=== PATIENT | male | born 1960 | race Caucasian/White ===

== ENCOUNTER 2016-12-23 20:29 | Emergency (ER) | payer OTHER, MEDICARE ==
[~2016-12-23] VITALS: Ht 175.3 cm; Wt 111.1 kg
[~2016-12-23 20:29] MED LIST: NAPROSYN 500 M500 MG PO
[2016-12-23 20:35] VITALS: BP 158/93
--- NOTE | 2016-12-23 21:02 | ED ANKLE/FOOT INJURY COMPLAINT ---
History of Present Illness General Chief Complaint: Lower Extremity Injury Stated Complaint: PT FELL AND POSSIBLE BROKEN LEFT ANKLE Source: patient, old records Exam Limitations: no limitations Vital Signs & Intake/Output Vital Signs & Intake/Output Vital Signs Date Time Temp Pulse Resp B/P Pulse O2 O2 Flow FiO2 Ox Delivery Rate 12/23 2034 97.9 91 20 158/93 97 Room Air ED Intake and Output 12/24 0000 12/23 1200 Intake Total Output Total Balance Patient 245 lb Weight Allergies Coded Allergies: NO KNOWN ALLERGIES (12/23/16) Reconcile Medications Ibuprofen 800 MG TABLET 1 TAB PO Q8 PRN PAIN Naproxen (Naprosyn) 250 MG TABLET 1 TAB PO BID PRN KNEE PAIN Tramadol HCl 50 MG TABLET 1-2 TAB PO Q6 PRN pain Triage Note: TRIAGE: PT TO ER WITH S/O C/C L ANKLE PAIN S/P FALL. STATES HE TRIPPED ON A ROCK THAT WAS UNDER THE LEAVES THIS AFTERNOON. DID NOT TAKE ANY OTC PAIN MEDICATIONS, REFUSES OFFERED PAIN MEDICATIONS AT TRIAGE. Triage Nurses Notes Reviewed? yes HPI: Patient is a 56 year old male presents complaining of left ankle pain s/p inversion injury. Patient was walking at 1400 today when he stepped on a rock and inverted his left ankle. Pain is 10/10 worsens with movement and palpation. Patient smoked marijuana this evening with minimal improvement of his pain. Denies head injury, neck pain, back pain. (RICH SILVESTRE) Past History Travel History Traveled to [place] past 21 day No Medical History Any Pertinent Medical History? see below for history Neurological: NONE EENT: NONE Cardiovascular: NONE Respiratory: NONE Gastrointestinal: NONE Hepatic: NONE Renal: NONE Musculoskeletal: chronic back pain, disk herniation, HAND FX L LEG FX Psychiatric: NONE Endocrine: NONE Blood Disorders: NONE Cancer(s): NONE LATEX DIPPER/Reproductive: NONE Surgical History Surgical History: Tube placement in his ear when he was young Psychosocial History What is your primary language [place] Tobacco Use: Current Daily Use Daily Tobacco Use Amount/Type: => 5 Cigarettes daily ETOH Use: denies use Illicit Drug Use: marijuana Family History Hx Contributory? No (RICH SILVESTRE) Review of Systems Review of Systems Constitutional: Reports: no symptoms. Cardiovascular: Denies: chest pain. GI: Denies: abdominal pain. Musculoskeletal: Reports: see HPI. Denies: back pain, neck pain. Skin: Reports: no symptoms. Neurological/Psychological: Denies: headache, numbness, paresthesia. Hematologic/Endocrine: Denies: bruising, bleeding. Immunologic/Allergic: Denies: splenectomy. (RICH SILVESTRE) Physical Exam Physical Exam General Appearance: well developed/nourished, alert, awake, obese Head: atraumatic, normal appearance Eyes: Bilateral: normal appearance, PERRL, EOMI. Ears, Nose, Throat: normal pharynx, normal ENT inspection, hearing grossly normal Neck: normal inspection, supple, full range of motion Cardiovascular/Respiratory: no respiratory distress Back: normal range of motion Leg/Knee/Thigh Left: normal range of motion, normal inspection Ankle Left: TENDERNESS AND SWELLING LEFT LATERAL MALLEOLUS. jOINT STABLE, FULL RANGE OF MOTION. Foot Left: normal inspection, normal range of motion, NONTENDER Neuro/Vascular: normal motor function, normal sensation Tendon: normal tendon function (RICH SILVESTRE) Progress Differential Diagnosis: fracture, dislocation, sprain, contusion Plan of Care: Orders Procedure Date/time Status Durable Medical Equipment 12/23 2125 Active Durable Medical Equipment 12/23 2120 Active 2119: Results of x-ray discussed with patient. Left ankle and foot re-examined. no tenderness of the lateral midfoot. Suspect this bone fragment seen on x-ray if from previous injury. This was discussed with patient. Will place in airsplint and have patient follow up with orthopedics if no improvement. (RICH SILVESTRE) Diagnostic Imaging: Viewed by Me: Radiology Read. Discussed w/RAD: Radiology Read. Radiology Impression: PATIENT: ALONDRA OMRRIS PRESENT AGE: 56 PATIENT ACCOUNT NO: [id number] : 62 LOCATION: [facility] ORDERING PHYSICIAN: RICH NARAYANAN SERVICE DATE: 12/23/16 EXAM TYPE: RAD - XRY-ANKLE 3 OR MORE VIEWS L EXAMINATION: XR ANKLE, LEFT CLINICAL INFORMATION: Left ankle pain after fall COMPARISON: 05/02/2015 TECHNIQUE: AP, lateral, and mortise views of the left ankle. FINDINGS: There is a redemonstrated healed fracture of the distal tibial diaphysis, without significant change from prior. Osseous alignment across the ankle is anatomic. There is a small osseous density along the lateral aspect of the midfoot, of uncertain chronicity. Lateral soft tissue swelling is noted at the ankle. Posterior calcaneal spurring is present. IMPRESSION: 1. Small osseous density along the lateral aspect of the midfoot, of uncertain chronicity. An avulsed fracture fragment cannot excluded in the setting of trauma. 2. Lateral soft tissue swelling at the ankle. 3. Healed fracture of the distal tibial diaphysis. DICTATED BY: JOHN MOREL MD DATE/ TIME DICTATED:12/23/162108 WREATH MAKER:CON DATE/TIME TRANSCRIBED: 12/23/162108 CONFIDENTIAL, DO NOT COPY WITHOUT APPROPRIATE AUTHORIZATION. < Electronically signed in Other Vendor System> SIGNED BY: JOHN MOREL MD 12/23/162116 (RICH SILVESTRE) Departure Departure Time of Disposition: 2122 Disposition: HOME OR SELF CARE Condition: Stable Clinical Impression Primary Impression: Left ankle sprain Qualifiers: Encounter type: initial encounter Involved ligament of ankle: unspecified ligament Qualified Code: S93.402A - Sprain of unspecified ligament of left ankle, initial encounter Referrals: MARTIN SINHA,YOJANA De Jesus PATIENT HAS NO PRIMARY CARE DR (PCP/Family) Additional Instructions: Rest, elevate, wear air splint for support. follow up with Dr. Green( orthopedist) next week if no improvement by Monday. Return to the Emergency Department if numbness, pain uncontrollable or worsening of symptoms. Departure Forms: Customer Survey General Discharge Information Prescriptions: Current Visit Scripts Ibuprofen 1 TAB PO Q8 PRN PAIN #20 TAB Tramadol HCl 1-2 TAB PO Q6 PRN pain #15 TAB (RICH SILVESTRE) PA/FELT PAD CUTTER Co-Sign Statement Statement: ED Attending supervision documentation- [] I saw and evaluated the patient. I have also reviewed all the pertinent lab results and diagnostic results. I agree with the findings and the plan of care as documented in the PA's/FELT PAD CUTTER's documentation. [x]x I have reviewed the ED Record and agree with the PA's/FELT PAD CUTTER's documentation. [] Additions or exceptions (if any) to the PAs/FELT PAD CUTTER's note and plan are summarized below: [] (HOMER SINHA,CATHIE Ahumada)
--- NOTE | 2016-12-23 21:17 | RADIOLOGY REPORT ---
EXAMINATION: XR ANKLE, LEFT CLINICAL INFORMATION: Left ankle pain after fall COMPARISON: 05/02/2015 TECHNIQUE: AP, lateral, and mortise views of the left ankle. FINDINGS: There is a redemonstrated healed fracture of the distal tibial diaphysis, without significant change from prior. Osseous alignment across the ankle is anatomic. There is a small osseous density along the lateral aspect of the midfoot, of uncertain chronicity. Lateral soft tissue swelling is noted at the ankle. Posterior calcaneal spurring is present. IMPRESSION: 1. Small osseous density along the lateral aspect of the midfoot, of uncertain chronicity. An avulsed fracture fragment cannot excluded in the setting of trauma. 2. Lateral soft tissue swelling at the ankle. 3. Healed fracture of the distal tibial diaphysis.
[2016-12-23] MEDS ORDERED: IBUPROFEN800 M1 PO (21:24)
[2016-12-23] MEDS ORDERED: TRAMADOL HCL50 M1 PO (21:24)
== END 2016-12-23 21:36 ==
LOC: ERH 20:29
DX: S93.402A Sprain of unspecified ligament of left ankle, initial encounter (principal); W18.09XA Striking against other object with subsequent fall, initial encounter
CPT/HCPCS: 73610-LT